=== PATIENT | male | born 1985 | race Caucasian/White ===

== ENCOUNTER 2017-08-24 18:40 | Emergency (ER) | payer SELFPAY ==
[2017-08-24 18:49] VITALS: BP 139/92; PULSE 64; TEMP 98.4; BMI 27.6
--- NOTE | 2017-08-24 19:51 | PDOC ---
History of Present Illness - History of Present Illness Initial Comments: 08/24/17 20:26 Patient is a 32 year old male with a significant past medical history of who presents to the ED s/p left ring finger injury that occurred this afternoon. Patient reports moving logs when one managed to roll over onto left ring finger. He reports immediate pain following the incident but states it is currently numb. Patient states he did not take any medication for left ring finger pain. Patient reports being worried about circulation issues for his finger, due to lack of sensation in tip of finger. Denies chest pain, SOB. Denies fever, chills. Denies nausea, Vomiting. Denies any other symptoms. Allergies: None Social history: No smoking. No alcohol. No illicit drugs. Surgical history: None PMD: None Adult ROS General: No fevers or chills, no weakness, no weight loss HEENT: No change in vision. No sore throat, No ear pain CardioVascular: No chest pain or shortness of breath Respiratory:No cough, or wheezing. Gastrointestinal: no nausea, vomiting, diarrhea or constipation, No rectal bleeding Genitourinary: No dysuria, hematuria, or frequency Musculoskeletal: +Left ring finger pain. No joint or muscle pain or swelling Neurologic: No headache, vertigo, dizziness or loss of consciousness Psychiatric: nor depression Skin: No rashes or easy bruising Endocrine: no increased thirst or abnormal weight change Allergic: no skin or latex allergy All other systems reviewed and normal Basic PE GENERAL: The patient is awake, alert, and fully oriented, in no acute distress. HEAD: Normal with no signs of trauma. EYES: Pupils equal, round and reactive to light, extraocular movements intact, sclera anicteric, conjunctiva clear. EXTREMITIES:+Swelling and ecchymosis to left ring finger distal phalanx, palmar side greater than dorsum. +Subungual hematoma. +Fingertip soft and warm to touch. +Some decreased sensation in left ring finger tip. No bony tenderness on palpation. Normal range of motion, no edema. NEUROLOGICAL: Normal speech, normal gait. PSYCH: Normal mood, normal affect. SKIN: Warm, Dry, normal turgor, no rashes or lesions noted. 08/24/17 20:29 <Moody Pelayo - Last Filed: 08/24/17 20:29> - General History Source: Patient Exam Limitations: No Limitations - History of Present Illness Initial Comments: 08/24/17 20:33 A portion of this note was documented by scribe services under my direction. I have reviewed the details of the note, within reason, and agree with the documentation. The case summary and management plan written by me. Assessment and plan: This is a 32-year-old male who injured the tip of his left ring finger when he was moving some logs and one of them rolled onto the tip of it. Patient had an x-ray that was negative for any fracture. Patient had ecchymosis to the tip of the finger however the palmar pad was soft and there was no bony tenderness. Fingertip was warm and well perfused patient did report some mild decrease in sensation likely secondary to a contusion of the nerves. Patient told he can take Tylenol for the pain ice the area and follow-up with his primary care doctor <Nusrat Toribio I - Last Filed: 08/24/17 20:34> - General Chief Complaint: Injury Stated Complaint: LEFT RING FINGER INJURY Time Seen by Provider: 08/24/17 19:06 Past History <Moody Pelayo - Last Filed: 08/24/17 20:29> - Past Medical History COPD: No - Suicide/Smoking/Psychosocial Hx Smoking History: Never smoked Hx Alcohol Use: Yes (OCCASIONAL) Drug/Substance Use Hx: No <Nusrat Toribio I - Last Filed: 08/24/17 20:34> - Past Medical History Allergies/Adverse Reactions: Allergies Allergy/AdvReac Type Severity Reaction Status Date / Time No Known Allergies Allergy Verified 08/24/17 18:52 Home Medications: Ambulatory Orders NK [No Known Home Medication] 08/24/17 *Physical Exam - Vital Signs Last Vital Signs Temp Pulse Resp BP Pulse Ox 98.4 F 64 15 139/92 99 08/24/17 18:44 08/24/17 18:44 08/24/17 18:44 08/24/17 18:44 08/24/17 18:44 <Moody Pelayo - Last Filed: 08/24/17 20:29> - Vital Signs Last Vital Signs Temp Pulse Resp BP Pulse Ox 98.4 F 64 15 139/92 99 08/24/17 18:44 08/24/17 18:44 08/24/17 18:44 08/24/17 18:44 08/24/17 18:44 <Nusrat Toribio I - Last Filed: 08/24/17 20:34> *DC/Admit/Observation/Transfer - Attestations Scribe Attestion: 08/24/17 20:26 Documentation prepared by Moody Pelayo, acting as adjunct faculty for medical terminology for Nusrat Toribio MD/DO. <Moody Pelayo - Last Filed: 08/24/17 20:29> - Discharge Dispostion Admit: No <Nusrat Toribio I - Last Filed: 08/24/17 20:34> Diagnosis at time of Disposition: Fingertip contusion Qualifiers: Encounter type: initial encounter Qualified Code(s): S60.00XA - Contusion of unspecified finger without damage to nail, initial encounter - Discharge Dispostion Disposition: HOME Condition at time of disposition: Good - Patient Instructions Additional Instructions: Tylenol if needed for pain. Return to the emergency department immediately with ANY new, persistent or worsening symptoms. Continue any medications as previously prescribed by your physician. You should follow up with your primary doctor as soon as possible regarding today's emergency department visit. . Please make sure your doctor reviews the results of your emergency evaluation. Thank you for coming to the Emergency Department today for your care. It was a pleasure to see you today. Please note that your evaluation is INCOMPLETE until you follow-up with your doctor.
== END 2017-08-24 20:13 | disposition home or self-care (01) ==
LOC: FER 18:40
DX: S60.00XA Contusion of unspecified finger without damage to nail, initial encounter (principal); W23.0XXA Caught, crushed, jammed, or pinched between moving objects, initial encounter; Y93.89 Activity, other specified; Y92.9 Unspecified place or not applicable
CPT/HCPCS: 73130-TC-LT; 99281-25